=== PATIENT | female | born 1990 | race African-American/Black ===

== ENCOUNTER 2017-07-26 20:48 | Emergency (ER) | payer OTHER ==
--- NOTE | 2017-07-26 21:54 | PD ---
HPI Chief Complaint Nausea/vomting 1 day Reduced movements Date Seen: Jul 26, 2017 Time Seen: 21:35 Travel History International Travel<30 Days: No Contact w/Intl Traveler<30Days: No Known Affected Area: No History of Present Illness HPI Pt is a 27 yo at 38 weeks and 3 days . Pt reports sudden onset nausea and vomiting today. No headaches, vision changes or abdominal pain. No diarrhea. No sick contacts. BP 119/61 Weeks Gestation: 38 Para: 0 : 1 History Past Surgical History Narrative Surgical Tonsillectomy. LEFT knee surgery ( torn [email or web address] 2014 Social History Alcohol Use: No Tobacco Use: No (quit smoking at onset of ) Substance Abuse: No Allergies-Medications (Allergen,Severity, Reaction): Coded Allergies: No Known Allergies (Unverified , 07/26/17) Review of Systems Except as stated in HPI: all other systems reviewed are Neg Physical Exam Narrative GENERAL: Well-nourished, well-developed patient. SKIN: Warm and dry. HEAD: Normocephalic and atraumatic. EYES: No scleral icterus. No injection or drainage. ENT: No nasal drainage noted. Mucous membranes pink. Airway patent. NECK: Supple, trachea midline. No JVD. CARDIOVASCULAR: Regular rate and rhythm without murmurs, gallops, or rubs. RESPIRATORY: Breath sounds equal bilaterally. No accessory muscle use. BREASTS: Bilateral exam showed no masses , no retractions, no nipple discharge. ABDOMEN/GI: Abdomen soft, non-tender, bowel sounds present, no rebound, no guarding Gravid to [-] weeks size Fundal Height: [-] GENITOURINARY: External Genitalia: intact and normal in appearance BUS glands: [-] Uterine Contractions: [irregular-] FHT's: Category: [1] Baseline: [130s] Reactive: [-] Variability: [moderate] Decels: [none-] EXTREMITIES: No cyanosis or edema. BACK: Nontender without obvious deformity. No CVA tenderness. NEUROLOGICAL: Awake and alert. Motor and sensory grossly within normal limits. Five out of 5 muscle strength in all muscle groups. Normal speech. Data Data Vital Signs Reviewed: Yes MDM Medical Record Reviewed: Yes Interpretation(s) Category 1 tracing. activity seen UA with SG 1.025, ketones No suggestion of infection. Plan PO hydration, ODT Zofran Diagnosis Diagnosis: Primary Impression: Nausea & vomiting Additional Impressions: Ketonuria with 38 completed weeks gestation Disposition: 01 DISCHARGE HOME Condition: Good Scripts Ondansetron Odt (Zofran Odt) 4 Mg Tab 4 MG SL Q8HR Y for Nausea/Vomiting for 3 Days, #30 TAB 0 Refills Prov: Jonnie Meléndez MD 07/26/17 Jonnie Meléndez MD Jul 26, 2017 21:54
[2017-07-26] MEDS ORDERED: ONDANSETRON ODT 4 MG TAB SL ONE (22:00)
[2017-07-26] MEDS ORDERED: ZOFR4TAB3 SL (22:22)
== END 2017-07-26 22:27 | disposition home or self-care (01) ==
LOC: HOBED 20:48
DX: O21.0 Mild hyperemesis gravidarum (principal); R82.4 Acetonuria; Z3A.38 38 weeks gestation of pregnancy
CPT/HCPCS: 59025

== ENCOUNTER 2017-08-09 15:03 | Inpatient (IN) | payer OTHER ==
[2017-08-09] VITALS (18 sets, daily range): BP systolic 97–151; BP diastolic 58–79; PULSE 89–130; RESP 16–18; TEMP 98.1–98.5
[~2017-08-09 15:03] MED LIST: ZOFR4TAB3 SL
[2017-08-09] MEDS ORDERED: LACTATED RINGER'S 1000 ML INJ 1,000 ML IV PRN (15:04)
[2017-08-09] MEDS ORDERED: ONDANSETRON HCL 4 MG/2 ML VIAL IV PUSH PRN (15:15)
[2017-08-09] MEDS ORDERED: LIDOCAINE HCL 1% 50 ML VIAL I-DERMAL PRN (15:15)
[2017-08-09] MEDS ORDERED: LIDOCAINE HCL 1% 50 ML VIAL INFIL PRN (15:15)
[2017-08-09] MEDS ORDERED: MINERAL OIL 10 ML VIAL TOPICAL PRN (15:15)
[2017-08-09] MEDS ORDERED: CITRIC ACID-SODIUM CITRATE LIQ 30 ML UDC PO SCH (15:15)
[2017-08-09] MEDS ORDERED: SODIUM CHLORID 0.9% 500 ML INJ 500 ML IV PRN (15:15)
[2017-08-09] MEDS ORDERED: SODIUM CHLOR 0.9% 1000 ML INJ 1,000 ML IV PRN (15:24)
[2017-08-09 15:34] LABS: BLOOD GAS O2 HGB SATURATION 31 % (90-100); CORD BLOOD GAS HCO3 20 mmol/L (21-29); CORD BLOOD GAS PCO2 76 mmHG (34-78); CORD BLOOD GAS PH 7.05 (7.14-7.42)
[2017-08-09 15:35] LABS: CORD BLOOD GAS PO2 24 mmHG (3.0-40.0)
[2017-08-09 15:36] LABS: DRAW SITE CORD BLOOD; STAT NO
[2017-08-09] MEDS ORDERED: ONDANSETRON ODT 4 MG TAB PO PRN (15:45)
[2017-08-09] MEDS ORDERED: oxyCODONE/ACETAMINOPHEN 5 MG/325 MG TAB PO PRN (15:45)
[2017-08-09] MEDS ORDERED: DOCUSATE SODIUM 50 MG/SENNA 8.6 MG TAB PO PRN (15:45)
[2017-08-09] MEDS ORDERED: SODIUM CHLORIDE 0.9% FLUSH 10 ML FLUSH IV FLUSH PRN (15:45)
[2017-08-09] MEDS ORDERED: ALUMINUM/MAGNESIUM/SIMETH 30 ML CUP PO PRN (15:45)
[2017-08-09] MEDS ORDERED: ACETAMINOPHEN 325 MG TAB PO PRN (15:45)
[2017-08-09 15:54] LABS: AUTOMATED NEUTROPHIL # 14.8 TH/MM3 (1.8-7.7); BASOPHIL % 0.2 % (0.0-2.0); HEMATOCRIT 36.3 % (35.0-46.0); HEMO FLAGS DIFF FINAL; MEAN CELL VOLUME 84.3 FL (80.0-100.0); MONO % 6.1 % (0.0-8.0); NEUT % 87.7 % (16.0-70.0); PLATELET COUNT 263 TH/MM3 (150-450); RED BLOOD COUNT 4.31 MIL/MM3 (4.00-5.30); RED CELL DISTRIBUTION WIDTH 15.5 % (11.6-17.2); WHITE BLOOD COUNT 16.8 TH/MM3 (4.0-11.0)
--- NOTE | 2017-08-09 15:56 | PD.OB.DELI ---
Weeks gestation: 40 (40) Gest age assessed date: Aug 09, 2017 Gest age assessed time: 16:09 Pt started active labor?: Yes Active labor start date: Aug 09, 2017 Medical induction of labor?: No Artificial rupture of membrane: No Anesthesia: None Episiotomy: Midline Vaginal Delivery: Normal Presentation: Occiput anterior Nuchal Cord: x1 Delayed cord clamping (45 sec): No (baby in distress) Delivery date: Aug 09, 2017 Delivery time: 15:21 One Minute : 7 Five Minute : 9 Weight: 3610 Placenta: Spontaneous delivery, Intact, 3 vessel cord, Cord pH Laceration: Episiotomy (repaired with 3.0) Additional Information Patient G1PO at 40 weeks and 3 days attempted home delivery with paper finisher today. Apparently, at home the patient had labored all day and had pushed for about 20-30 minutes at home and paper finisher noted FHR dropped to the 60-70 range during pushing and therefor called 911 emergently. Patient arrived via [facility] -- bp in route in the normal range. Patient was 9cm upon admission with small anterior lip. heart tracing with deep decelerations with contractions. Patient complete and pushing soon after admission. Very small midline episiotomy done to provide room for the head. Nuchal cord times 1 noted and easily reduced. Baby in some distress. No delayed cord clamping and baby passed to nursery team to assess. Episiotomy repaired without complications Estimated EBL 250ml Delivery performed under the supervision of Brooklyn Iglesias MD Aug 09, 2017 15:56
[2017-08-09] MEDS ORDERED: OXYTOCIN 30 UNITS-500ML PREMIX 500 ML IV SCH (16:00)
[2017-08-09] MEDS ORDERED: DIPHTH/TETANUS/ACEL PERTUSSIS (BOOSTER) 0.5 ML VIAL/PFS IM ONE (16:00)
[2017-08-09] MEDS ORDERED: OXYTOCIN 30 UNITS-500ML PREMIX 500 ML IV ONE (16:00)
[2017-08-09] MEDS ORDERED: LACTATED RINGER'S 1000 ML INJ 1,000 ML IV SCH (16:00)
[2017-08-09] MEDS ORDERED: MEASLES, MUMPS, RUBELLA VACCINE 0.5 ML VIAL SQ ONE (16:00)
[2017-08-09] MEDS: oxyCODONE/ACETAMINOPHEN 5 MG/325 MG TAB PO PRN (18:34)
[2017-08-09] MEDS: IBUPROFEN 600 MG TAB PO PRN (18:34)
[2017-08-09] MEDS: WITCH HAZEL 50%/GLYCERIN 12.5% 40 PAD JAR TOPICAL PRN (19:11)
[2017-08-09] MEDS: BENZOCAINE 20% TOPICAL SPRAY 60 ML CAN TOPICAL PRN (19:11)
[2017-08-09] MEDS ORDERED: ZOLPIDEM TARTRATE 5 MG TAB PO PRN (21:00)
[2017-08-09] MEDS ORDERED: SODIUM CHLORIDE 0.9% FLUSH 10 ML FLUSH IV FLUSH SCH (21:00)
[2017-08-10] MEDS: IBUPROFEN 600 MG TAB PO PRN ×3 (00:25→13:31)
[2017-08-10] MEDS: oxyCODONE/ACETAMINOPHEN 5 MG/325 MG TAB PO PRN ×3 (00:27→13:32)
[2017-08-10 08:10] VITALS: BP_SYST 85; BP_SYST 98; BP_DIAS 56; PULSE 74; RESP 17; TEMP 97.7
[2017-08-10] MEDS ORDERED: IBUP-232 PO (10:29)
--- NOTE | 2017-08-10 10:29 | HHI.DCPOC ---
Discharge Care Plan Diagnosis: (1) Normal vaginal delivery Report Symptoms to Your Doctor -Temperature above 100.5 degrees -Redness, of incision or excessive or foul smelling drainage -Unusual pain or calf pain -Increased vaginal bleeding -Painful or difficulty urinating -Feelings of extreme sadness or anxiety after 2 weeks Goals to Promote Your Health * To prevent worsening of your condition and complications * To maintain your health at the optimal level Directions to Meet Your Goals Take your medications as prescribed Follow your dietary instruction Follow activity as directed Ensure plenty of rest for recovery Drink fluids for hydration Keep your appointments as scheduled Take your immunizations and boosters as scheduled If your symptoms worsen call your PCP, if no PCP go to Urgent Care Center or Emergency Room Smoking is Dangerous to Your Health. Avoid second hand smoke Call the 24-hour crisis hotline for domestic abuse at Isaak Weiss MD R2 Aug 10, 2017 10:29
--- NOTE | 2017-08-10 14:36 | HHI.OB ---
Subjective Post Day: 1 Remarks 27 year old female s/p at 40 wks gestation, PPD 1. AFVSS. Patient reports she is feeling well. Bleeding is decreasing and pain is well- controlled. She is breast feeding and bonding well with baby. Ambulating without difficulties. She is tolerating a diet without nausea or vomiting. She has not had a bowel movement. She has passed gas. Denies chest pain, dysuria, shortness of breath, or calf pain. Objective Vitals/I&O Vital Signs Date Time Temp Pulse Resp B/P (MAP) Pulse Ox O2 Delivery O2 Flow Rate FiO2 08/10/17 08:10 98/56 (70) 08/10/17 08:10 97.7 74 17 85/56 (66) 08/09/17 22:30 98.1 96 18 107/66 (80) 08/09/17 18:30 16 08/09/17 18:16 109 120/71 (87) 08/09/17 18:00 96 121/77 (92) 08/09/17 17:46 115 97/77 (84) 08/09/17 17:45 16 08/09/17 17:31 98 127/63 (84) 08/09/17 17:16 89 129/79 (96) 08/09/17 17:15 16 08/09/17 17:02 105 106/68 (81) 08/09/17 17:00 16 08/09/17 16:46 108 116/69 (85) 08/09/17 16:45 16 08/09/17 16:31 115 127/78 (94) 08/09/17 16:30 98.5 16 08/09/17 16:22 112 113/58 (76) 08/09/17 15:30 18 08/09/17 15:21 130 151/63 (92) Objective Remarks GENERAL: Well-nourished, well-developed patient. CARDIOVASCULAR: Regular rate and rhythm without murmurs, gallops, or rubs. RESPIRATORY: Breath sounds equal bilaterally. No accessory muscle use. ABDOMEN/GI: Abdomen soft, non-tender. Obese. Fundus: Firm, non-tender at umbilicus. GENITOURINARY: Light to moderate bleeding. EXTREMITIES: No cyanosis or edema, non-tender, without signs of DVT. Medications and IVs Current Medications Medications (Trade) Dose Ordered Sig/Nidia Route Start Time Stop Time Status Last Admin Lactated Ringer's 1,000 ml @ 125 mls/hr Q8H IV 08/09/17 16:00 Lactated Ringer's 1,000 ml @ 3,000 mls/hr Q20M PRN IV 08/09/17 15:04 Sodium Chloride 1,000 ml @ 100 mls/hr Q10H PRN IV 08/09/17 15:24 (Xylocaine 1% Inj (50 ml)) 0.1 ml UNSCH X1 PRN I-DERMAL 08/09/17 15:15 08/12/17 15:14 (Bicitra Liq) 30 ml MULTI SLIDE MACHINE TENDER PO 08/09/17 15:15 08/13/17 15:14 (Zofran Inj) 4 mg Q6H PRN IV PUSH 08/09/17 15:15 (fentaNYL INJ) 50 mcg Q1H PRN IV PUSH 08/09/17 15:15 (fentaNYL INJ) 100 mcg Q1H PRN IV PUSH 08/09/17 15:15 (Xylocaine 1% Inj (50 ml)) 10 ml UNSCH X1 PRN INFIL 08/09/17 15:15 08/11/17 15:14 (Muri-Lube Oil) 10 ml UNSCH PRN TOPICAL 08/09/17 15:15 (NS Flush) 2 ml BID IV FLUSH 08/09/17 21:00 (NS Flush) 2 ml UNSCH PRN IV FLUSH 08/09/17 15:45 (Tylenol) 650 mg Q4H PRN PO 08/09/17 15:45 (Motrin) 600 mg Q6H PRN PO 08/09/17 15:45 08/10/17 13:31 (Percocet 5-325 Mg) 1 tab Q4H PRN PO 08/09/17 15:45 (Percocet 5-325 Mg) 2 tab Q4H PRN PO 08/09/17 15:45 08/10/17 13:32 (Americaine 20% Top Spr) 1 spray Q4H PRN TOPICAL 08/09/17 15:45 08/09/17 19:11 (Tucks Pads) 1 applic QID PRN TOPICAL 08/09/17 15:45 08/09/17 19:11 (Laura-Colace) 2 tab Q12H PRN PO 08/09/17 15:45 08/10/17 13:31 (Ambien) 5 mg HS PRN PO 08/09/17 21:00 (Mag-Al Plus Susp Liq) 15 ml Q8H PRN PO 08/09/17 15:45 (Zofran Odt) 4 mg Q6H PRN PO 08/09/17 15:45 Assessment/Plan Problem List: (1) Normal vaginal delivery ICD Codes: O80 - Encounter for full-term uncomplicated delivery Assessment and Plan 27 yo female s/p , PPD 1 - AFVSS - Continue routine care - Motrin PRN pain - Encourage OOB - Pelvic rest x 6 wks - Contraception: Declines; counselled patient on risks of avoiding contraceptive use. Pt will think about it and discuss with PCP. - Cleared for D/C today if baby discharged Isaak Weiss MD R2 Aug 10, 2017 14:36
[2017-08-10] MEDS: BENZOCAINE 20% TOPICAL SPRAY 60 ML CAN TOPICAL PRN (16:48)
[2017-08-10] MEDS: WITCH HAZEL 50%/GLYCERIN 12.5% 40 PAD JAR TOPICAL PRN (16:48)
== END 2017-08-10 17:35 | disposition home or self-care (01) | DRG 775 ==
LOC: HOBED 15:03 → H2EA 15:09 → H1EA 18:46
PROVIDERS: ADMIT Obstetrics & Gynecology Maternal & Fetal Medicine; ATTEND Obstetrics & Gynecology Maternal & Fetal Medicine
PROC: 10E0XZZ Delivery of Products of Conception, External Approach (ICD-10-PCS; principal; 2017-08-09)
PROC: 0W8NXZZ Division of Female Perineum, External Approach (ICD-10-PCS; 2017-08-09)
DX: O48.0 Post-term pregnancy (principal); O76 Abnormality in fetal heart rate and rhythm complicating labor and delivery; O69.81X0 Labor and delivery complicated by cord around neck, without compression, not applicable or unspecified; Z37.0 Single live birth; Z3A.40 40 weeks gestation of pregnancy
CPT/HCPCS: 82805; 85025; 86900; 86901; 99283; J3010

== ENCOUNTER 2017-10-15 03:00 | Emergency (ER) | payer SELFPAY ==
[~2017-10-15] VITALS: Ht 167.6 cm; Wt 120.0 kg
[~2017-10-15 03:00] MED LIST changes: +IBUP-232 PO
[2017-10-15 03:04] VITALS: BP 148/84; PULSE 90; RESP 18; TEMP 97.7; O2SAT 96
== END 2017-10-15 05:13 | disposition left against medical advice (07) ==
LOC: NED 03:00
DX: R07.9 Chest pain, unspecified (principal); Z53.21 Procedure and treatment not carried out due to patient leaving prior to being seen by health care provider
CPT/HCPCS: 99281